=== PATIENT | male | born 1995 | race Caucasian/White ===

== ENCOUNTER 2017-05-20 20:56 | Observation (INO) | payer OTHER ==
[~2017-05-20] VITALS: Ht 182.9 cm; Wt 121.8 kg
[2017-05-20 21:10] VITALS: BP 139/86; PULSE 102; RESP 16; TEMP 100.4; O2SAT 100
[2017-05-20] MEDS ORDERED: SODIUM CHLOR 0.9% 1000 ML INJ 1,000 ML IV ONE ×3 (21:34)
[2017-05-20] MEDS ORDERED: VANCOMYCIN INJ 1,000 MG in SODIUM CHLOR 0.9% 250 ML INJ 250 ML IV STA (21:34)
[2017-05-20] MEDS ORDERED: PIPERACIL-TAZO 4.5 GM PREMIX 100 ML IV STA (21:34)
[2017-05-20] MEDS ORDERED: SODIUM CHLOR 0.9% 1000 ML INJ 600 ML IV ONE (21:34)
[2017-05-20] MEDS ORDERED: HYDROmorphone HCL PF 1 MG/ML VIAL IV ONE (21:45)
[2017-05-20] MEDS ORDERED: ONDANSETRON HCL 4 MG/2 ML VIAL IV ONE (21:45)
--- NOTE | 2017-05-20 22:13 | PD ---
HPI . Purulent drainage Chief Complaint: Bleeding Time Seen by Provider: 21:33 Travel History International Travel<30 days: No Contact w/Intl Traveler<30days: No History of Present Illness HPI This patient presents with the chief complaint of bleeding and purulent drainage from previous surgical wound. It sounds like this patient had removal of a pilonidal cyst abscess in late March. This was done in [place]. Sutures were removed on May 02. The patient reports that the wound has opened up some and has continued to drain since before the sutures were removed. He states that the surgeon told him that it would be okay. He has not followed up with the surgeon since then. He has since relocated to here to be near his mother. The patient reports the onset of fevers and chills last night. The patient indicates that the bleeding and drainage has been pretty consistent since the sutures were removed but that there is no acute change in the bleeding and drainage. History is a little bit difficult because the mother keeps interjecting. PFSH Past Medical History ADHD: Yes Anxiety: Yes Tetanus Vaccination: < 5 Years Influenza Vaccination: No Past Surgical History Other Surgery: Yes (PILONIDAL CYST REMOVED: APRIL 22, 2017) Social History Alcohol Use: Yes ("I DON'T DRINK OFTEN") Tobacco Use: No Substance Use: No Allergies-Medications (Allergen,Severity, Reaction): Coded Allergies: No Known Allergies (Unverified , 05/20/17) Reported Meds & Prescriptions Reported Meds & Active Scripts Active No Active Prescriptions or Reported Medications Review of Systems Except as stated in HPI: all other systems reviewed are Neg General / Constitutional: Positive: Fever, Chills Skin: Positive Lesions (with bleeding and purulent drainage) Physical Exam Narrative GENERAL: Awake and alert and in no acute distress. SKIN: Warm and dry. He has an open wound in the gluteal cleft with purulent drainage. The surrounding skin has an erythematous rash with irregular border. HEAD: Atraumatic. Normocephalic. EYES: Pupils equal and round. NECK: Trachea midline. CARDIOVASCULAR: Regular rate and rhythm. RESPIRATORY: No accessory muscle use. MUSCULOSKELETAL: No obvious deformities. No edema. NEUROLOGICAL: Awake and alert. No obvious cranial nerve deficits. Motor grossly within normal limits. Normal speech. PSYCHIATRIC: Appropriate mood and affect; insight and judgment normal. Data Data Last Documented VS Vital Signs Date Time Temp Pulse Resp B/P Pulse Ox O2 Delivery O2 Flow Rate FiO2 05/20/17 23:07 99.9 94 16 117/57 97 Room Air Orders Basic Metabolic Panel (Bmp) (05/20/17 21:34) Complete Blood Count With Diff (05/20/17 21:34) Blood Culture (05/20/17 21:34) Wound Culture And Gram Stain (05/20/17 21:34) Iv Access Insert/Monitor (05/20/17 21:34) Lactic Acid Sepsis Protocol (05/20/17 21:34) Hydromorphone Pf Inj (Dilaudid Pf Inj) (05/20/17 21:45) Ondansetron Inj (Zofran Inj) (05/20/17 21:45) Piperacil-Tazo 4.5 Gm Premix (Zosyn 4.5 (05/20/17 21:34) Vancomycin Inj (Vancomycin Inj) (05/20/17 21:34) Sodium Chlor 0.9% 1000 Ml Inj (Ns 1000 M (05/20/17 21:34) Sodium Chlor 0.9% 1000 Ml Inj (Ns 1000 M (05/20/17 21:34) Sodium Chlor 0.9% 1000 Ml Inj (Ns 1000 M (05/20/17 21:34) Sodium Chlor 0.9% 1000 Ml Inj (Ns 1000 M (05/20/17 21:34) Place In Observation (05/20/17 ) Vital Signs (Adult) Q4H (05/20/17 23:37) Activity Oob With Assistance (05/20/17 23:37) Coal Yard Supervisor / Telemetry .CONTINUOUS (05/20/17 23:37) Diet Heart Healthy (05/21/17 Breakfast) Sodium Chloride 0.9% Flush (Ns Flush) (05/20/17 23:45) Sodium Chloride 0.9% Flush (Ns Flush) (05/21/17 09:00) Case Management Consult (05/20/17 23:37) Naloxone Inj (Narcan Inj) (05/20/17 23:45) Admit Order (Ed Use Only) (05/20/17 23:37) Labs Laboratory Tests Test 05/20/17 21:55 White Blood Count 10.8 TH/MM3 Red Blood Count 4.47 MIL/MM3 Hemoglobin 13.8 GM/DL Hematocrit 40.3 % Mean Corpuscular Volume 90.2 FL Mean Corpuscular Hemoglobin 30.9 PG Mean Corpuscular Hemoglobin 34.2 % Concent Red Cell Distribution Width 12.0 % Platelet Count 179 TH/MM3 Mean Platelet Volume 7.5 FL Neutrophils (%) (Auto) 83.2 % Lymphocytes (%) (Auto) 7.9 % Monocytes (%) (Auto) 7.5 % Eosinophils (%) (Auto) 1.3 % Basophils (%) (Auto) 0.1 % Neutrophils # (Auto) 9.0 TH/MM3 Lymphocytes # (Auto) 0.9 TH/MM3 Monocytes # (Auto) 0.8 TH/MM3 Eosinophils # (Auto) 0.1 TH/MM3 Basophils # (Auto) 0.0 TH/MM3 CBC Comment DIFF FINAL Differential Comment Sodium Level 138 MEQ/L Potassium Level 3.6 MEQ/L Chloride Level 102 MEQ/L Carbon Dioxide Level 29.1 MEQ/L Anion Gap 7 MEQ/L Blood Urea Nitrogen 15 MG/DL Creatinine 1.20 MG/DL Estimat Glomerular Filtration 77 ML/MIN Rate Random Glucose 101 MG/DL Lactic Acid Level 1.0 mmol/L Calcium Level 9.1 MG/DL MDM Medical Decision Making Medical Screen Exam Complete: Yes Emergency Medical Condition: Yes Differential Diagnosis My differential diagnosis includes but is not limited to localized wound infection, cellulitis, abscess Narrative Course This patient presents with subjective fever and chills associated with purulent drainage from a previous surgical wound in the pilonidal area. Septic workup has been initiated. Zosyn has been ordered. CBC & BMP Diagram 05/20/17 21:55 Lactic acid level is normal. This patient needs to be admitted to observation for IV antibiotics and local wound care. Physician Communication Physician Communication Dr. Jordan will admit Diagnosis Primary Impression: Wound infection after surgery Qualified Code: T81.4XXA - Wound infection after surgery, initial encounter Admitting Information Admitting Physician Requests: Observation Scripts No Active Prescriptions or Reported Meds Condition: Stable Dafne Pena MD May 20, 2017 22:13
[2017-05-20 22:15] VITALS: BP 137/68; PULSE 101; O2SAT 96
[2017-05-20 22:19] LABS: POTASSIUM 3.6 MEQ/L (3.5-5.1)
[2017-05-20 22:22] LABS: BICARBONATE 29.1 MEQ/L (21.0-32.0)
[2017-05-20 22:26] LABS: BASOPHIL % 0.1 % (0.0-2.0); EOSINOPHIL # 0.1 TH/MM3 (0-0.4); EOSINOPHIL % 1.3 % (0.0-4.0); HEMATOCRIT 40.3 % (39.0-51.0); HEMO FLAGS DIFF FINAL; LYMPH % 7.9 % (9.0-44.0); LYMPHOCYTE # 0.9 TH/MM3 (1.0-4.8); MEAN CELL VOLUME 90.2 FL (80.0-100.0); MEAN CORPUSCULAR HEMOGLOBIN 30.9 PG (27.0-34.0); MEAN CORPUSCULAR HGB CONC 34.2 % (32.0-36.0); MONO % 7.5 % (0.0-8.0); NEUT % 83.2 % (16.0-70.0); PLATELET COUNT 179 TH/MM3 (150-450); RED BLOOD COUNT 4.47 MIL/MM3 (4.50-5.90); WHITE BLOOD COUNT 10.8 TH/MM3 (4.0-11.0)
[2017-05-20 23:07] VITALS: BP 117/57; PULSE 94; RESP 16; TEMP 99.9; O2SAT 97
[2017-05-20] MEDS ORDERED: SODIUM CHLORIDE 0.9% FLUSH 10 ML FLUSH IV FLUSH PRN (23:45)
[2017-05-20] MEDS ORDERED: Vancomycin Consult Pharmacy 1 EA OTHER SCH (23:45)
[2017-05-20] MEDS ORDERED: NALOXONE HCL 0.4 MG/ML AMP IV PRN (23:45)
[2017-05-21] MEDS: CIPROFLOXACIN 400 MG PREMIX 200 ML IV SCH ×3 (00:25→23:22)
[2017-05-21 02:08] VITALS: BP 142/79; PULSE 95; RESP 18; TEMP 100.1; O2SAT 95
[2017-05-21 02:09] VITALS: BP 142/79; PULSE 95; RESP 18; TEMP 100.1; O2SAT 95
[2017-05-21] MEDS: PIPERACIL-TAZO 4.5 GM PREMIX 100 ML IV SCH ×4 (05:00→22:14)
[2017-05-21 08:00] VITALS: BP 137/64; PULSE 97; RESP 16; TEMP 99.7; O2SAT 98
[2017-05-21] MEDS: VANCOMYCIN INJ 1,500 MG in SODIUM CHLORID 0.9% 500 ML INJ 500 ML IV SCH ×2 (09:50→18:00)
[2017-05-21] MEDS: SODIUM CHLORIDE 0.9% FLUSH 10 ML FLUSH IV FLUSH SCH ×2 (09:50→22:14)
[2017-05-21 12:17] LABS: AUTOMATED NEUTROPHIL # 7.9 TH/MM3 (1.8-7.7); BASOPHIL % 0.4 % (0.0-2.0); EOSINOPHIL # 0.1 TH/MM3 (0-0.4); EOSINOPHIL % 1.1 % (0.0-4.0); HEMATOCRIT 37.2 % (39.0-51.0); HEMO FLAGS DIFF FINAL; LYMPH % 10.2 % (9.0-44.0); MEAN CELL VOLUME 91.7 FL (80.0-100.0); MEAN CORPUSCULAR HEMOGLOBIN 31.5 PG (27.0-34.0); MEAN CORPUSCULAR HGB CONC 34.4 % (32.0-36.0); MONO % 8.1 % (0.0-8.0); NEUT % 80.2 % (16.0-70.0); PLATELET COUNT 162 TH/MM3 (150-450); RED BLOOD COUNT 4.05 MIL/MM3 (4.50-5.90); RED CELL DISTRIBUTION WIDTH 12.1 % (11.6-17.2); WHITE BLOOD COUNT 9.8 TH/MM3 (4.0-11.0)
[2017-05-21] MEDS ORDERED: DIATRIZOATE MEGLUM/DIATRIZOATE SOD 9 ML CUP PO ONE (13:00)
[2017-05-21] MEDS ORDERED: IOHEXOL 350 MG/ML 10 ML VIAL (for RAD DIAG) IV ONE (15:23)
[2017-05-21 16:00] VITALS: BP 104/56; PULSE 84; RESP 18; TEMP 99.6; O2SAT 97
--- NOTE | 2017-05-21 16:40 | RADRPT ---
EXAM DATE/TIME: 05/21/2017 14:59 [facility] COMPARISON: No previous studies available for comparison. INDICATIONS : Infected pilonidal cyst, recent surgery 04/22/17. Wound drainage since sutures removed 05/02/17. Feve r x 2 days. Evaluate for abscess. IV CONTRAST: 100 cc Omnipaque 350 (iohexol) IV ORAL CONTRAST: Prescribed oral contrast ingested. RADIATION DOSE: 21.54 CTDIvol (mGy) MEDICAL HISTORY : None SURGICAL HISTORY : Surgery on pilonidal cyst. ENCOUNTER: Initial ACUITY: 3 weeks PAIN SCALE: 5/10 LOCATION: pelvis TECHNIQUE: Volumetric scanning of the pelvis was performed. Using automated exposure control and adjustment of t he mA and/or kV according to patient size, radiation dose was kept as low as reasonably achievable to obtain optimal diagnostic quality images. DICOM format image data is available electronically for review and comparison. FINDINGS: BOWEL/MESENTERY: The visualized small and large bowel demonstrate no acute abnormality. There is no free fluid. BLADDER: There is no wall thickening or mass. RETROPERITONEUM: There is no aneurysm or lymphadenopathy. REPRODUCTIVE: Within normal limits. INGUINAL: There is no lymphadenopathy or hernia. MUSCULOSKELETAL: Within normal limits for patient age. SOFT TISSUES: There is an elongated fluid/air collection extending from the left medial buttock inferiorly to the l evel of the coccyx with surrounding inflammatory changes in the subcutaneous fat. This measures appro ximately 10 cm in length and 2.2 cm transverse x 1.9 cm AP dimension. 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 CONCLUSION: An elongated fluid/air collection extending from the left medial buttock inferiorly to the level of t he coccyx with surrounding inflammatory changes in the subcutaneous fat. This measures approximately 10 cm in length and 2.2 cm transverse x 1.9 cm AP dimension. 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 Bautista Mascorro MD on May 21, 2017 at 16:32 Board Certified Radiologist. This report was verified electronically.
[2017-05-21] MEDS ORDERED: LIDOCAINE HCL 1% 50 ML VIAL ONE (17:15)
--- NOTE | 2017-05-21 17:28 | HHI.HP ---
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 He presents with a 2 to three-day history of fevers, Rigors. He denies any chest pain or shortness of breath. Patient reports that pus has continued to drain from area of pilonidal cyst surgery for the past 2 weeks. He says he tries to sit on it longer to numb the pain, however the pain returns when he stops sitting. He reports the pain is sharp and constant.. Review of Systems performed and negative except for HPI and past medical history. Past Family Social History Past Medical History Patient denies any past history Past Surgical History Pilonidal cyst removal 04/22/17 Reported Medications patient denies any medications. Allergies: Coded Allergies: No Known Allergies (Unverified , 05/20/17) Family History Family history reviewed with patient and found to be currently noncontributory Social History Nonsmoker. Drinks rarely. Denies illicit drugs. Physical Exam Vital Signs Vital Signs Date Time Temp Pulse Resp B/P Pulse Ox O2 Delivery O2 Flow Rate FiO2 05/21/17 08:00 99.7 97 16 137/64 98 05/21/17 02:09 100.1 95 18 142/79 95 05/21/17 02:08 100.1 95 18 142/79 95 05/20/17 23:07 99.9 94 16 117/57 97 Room Air 05/20/17 22:15 101 137/68 96 Room Air 05/20/17 21:10 100.4 102 16 139/86 100 Physical Exam GENERAL: This is a well-nourished, well-developed patient, in no apparent distress.alert and oriented 3. SKIN: gluteal crease. Pilonidal cyst surgical scar mostly healed, however with distal 3 cm open and draining serous fluid. Minimal surrounding erythema. HEAD: Atraumatic. Normocephalic. No temporal or scalp tenderness. EYES: Pupils equal round and reactive. Extraocular motions intact. No scleral icterus. No injection or drainage. ENT: Nose without bleeding, purulent drainage or septal hematoma. Throat without erythema, tonsillar hypertrophy or exudate. Uvula midline. Airway patent. NECK: Trachea midline. No JVD or lymphadenopathy. Supple, nontender, no meningeal signs. CARDIOVASCULAR: Regular rate and rhythm without murmurs, gallops, or rubs. RESPIRATORY: Clear to auscultation. Breath sounds equal bilaterally. No wheezes , rales, or rhonchi. GASTROINTESTINAL: Abdomen soft, non-tender, nondistended. No hepato-splenomegaly , or palpable masses. No guarding. MUSCULOSKELETAL: Extremities without clubbing, cyanosis, or edema. No joint tenderness, effusion, or edema noted. No calf tenderness. Negative Homans sign bilaterally. NEUROLOGICAL: Awake and alert. Cranial nerves II through XII intact. Motor and sensory grossly within normal limits. Five out of 5 muscle strength in all muscle groups. Normal speech. Laboratory Laboratory Tests Test 05/20/17 05/21/17 21:55 08:17 White Blood Count 10.8 9.8 Red Blood Count 4.47 4.05 Hemoglobin 13.8 12.8 Hematocrit 40.3 37.2 Mean Corpuscular Volume 90.2 91.7 Mean Corpuscular Hemoglobin 30.9 31.5 Mean Corpuscular Hemoglobin 34.2 34.4 Concent Red Cell Distribution Width 12.0 12.1 Platelet Count 179 162 Mean Platelet Volume 7.5 7.9 Neutrophils (%) (Auto) 83.2 80.2 Lymphocytes (%) (Auto) 7.9 10.2 Monocytes (%) (Auto) 7.5 8.1 Eosinophils (%) (Auto) 1.3 1.1 Basophils (%) (Auto) 0.1 0.4 Neutrophils # (Auto) 9.0 7.9 Lymphocytes # (Auto) 0.9 1.0 Monocytes # (Auto) 0.8 0.8 Eosinophils # (Auto) 0.1 0.1 Basophils # (Auto) 0.0 0.0 CBC Comment DIFF FINAL DIFF FINAL Differential Comment Sodium Level 138 Potassium Level 3.6 Chloride Level 102 Carbon Dioxide Level 29.1 Anion Gap 7 Blood Urea Nitrogen 15 Creatinine 1.20 1.10 Estimat Glomerular Filtration 77 85 Rate Random Glucose 101 Lactic Acid Level 1.0 Calcium Level 9.1 Date/Time Procedure Status Source Growth 05/20/17 22:00 Gram Stain - Final Resulted Wound Skin 05/20/17 22:00 Wound Culture - Preliminary Resulted Wound Skin 05/20/17 22:00 Aerobic Blood Culture - Preliminary Resulted Blood Peripheral NO GROWTH IN 1 DAY 05/20/17 22:00 Anaerobic Blood Culture - Preliminary Resulted Blood Peripheral NO GROWTH IN 1 DAY 05/20/17 21:34 Aerobic Blood Culture Received Blood Peripheral Pending 05/20/17 21:34 Anaerobic Blood Culture Received Blood Peripheral Pending Result Diagram: 05/21/17 0817 05/21/17 0817 Imaging Last Impressions Pelvis CT 05/21/17 0000 Signed Impressions: Service Date/Time: Sunday, May 21, 2017 14:59 - CONCLUSION: An elongated fluid/air collection extending from the left medial buttock inferiorly to the level of the coccyx with surrounding inflammatory changes in the subcutaneous fat. This measures approximately 10 cm in length and 2.2 cm transverse x 1.9 cm AP dimension. 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 Bautista Mascorro MD Assessment and Plan Assessment and Plan //Sepsis. Acute. Fever 100.4, tachycardia 102 on admission. Source of infection is pilonidal abscess. -Blood and wound cultures pending. -Lactate 1.0 on admission. -Continue broad-spectrum antibiotics //Postoperative Pilonidal cyst infection -Concern for possible osteomyelitis Continue vancomycin and Zosyn Consult infectious disease. Consult colorectal surgery. Discussed with colorectal surgeon organizational development manager. -patient reports pain, however this appears to be under control. We'll try to avoid narcotics if possible. -Have ordered CT pelvis. //prophylaxis. scds Code Status full code Discussed Condition With patient, nurse, surgeon Physician Certification 2 Midnight Certification Type: Admission for Inpatient Services Order for Inpatient Services The services are ordered in accordance with Medicare regulations or non- Medicare payer requirements, as applicable. In the case of services not specified as inpatient-only, they are appropriately provided as inpatient services in accordance with the 2-midnight benchmark. Estimated LOS (days): 2 days is the estimated time the patient will need to remain in the hospital, assuming treatment plan goals are met and no additional complications. Post-Hospital Plan: Not yet determined Darien Martinez MD May 21, 2017 17:28
[2017-05-21] MEDS: oxyCODONE/ACETAMINOPHEN 5 MG/325 MG TAB PO PRN (17:58)
[2017-05-21 20:00] VITALS: BP 144/90; PULSE 66; RESP 18; TEMP 98.5; O2SAT 97
[2017-05-22] VITALS: BP 108/66; PULSE 54; RESP 16; TEMP 97.2; O2SAT 99
[2017-05-22] MEDS: VANCOMYCIN INJ 1,500 MG in SODIUM CHLORID 0.9% 500 ML INJ 500 ML IV SCH ×2 (01:41→08:36)
[2017-05-22] MEDS: PIPERACIL-TAZO 4.5 GM PREMIX 100 ML IV SCH (04:00)
[2017-05-22 06:19] LABS: BASOPHIL % 0.6 % (0.0-2.0); EOSINOPHIL # 0.3 TH/MM3 (0-0.4); EOSINOPHIL % 6.5 % (0.0-4.0); HEMATOCRIT 37.7 % (39.0-51.0); HEMO FLAGS DIFF FINAL; LYMPH % 19.3 % (9.0-44.0); LYMPHOCYTE # 0.9 TH/MM3 (1.0-4.8); MEAN CORPUSCULAR HEMOGLOBIN 31.8 PG (27.0-34.0); MEAN CORPUSCULAR HGB CONC 34.5 % (32.0-36.0); MONO % 11.2 % (0.0-8.0); NEUT % 62.4 % (16.0-70.0); PLATELET COUNT 158 TH/MM3 (150-450); RED BLOOD COUNT 4.09 MIL/MM3 (4.50-5.90); RED CELL DISTRIBUTION WIDTH 11.9 % (11.6-17.2); WHITE BLOOD COUNT 4.7 TH/MM3 (4.0-11.0)
[2017-05-22 06:37] LABS: MAGNESIUM 2.1 MG/DL (1.5-2.5)
--- NOTE | 2017-05-22 07:16 | HHI.PR ---
Subjective Remarks C/R Surg afebrile, VSS Rebeka PO voiding Objective - Vital Signs Date Time Temp Pulse Resp B/P Pulse Ox O2 Delivery O2 Flow Rate FiO2 05/22/17 00:00 97.2 54 16 108/66 99 05/20/17 23:07 Room Air Result Diagram: 05/22/17 0555 05/22/17554 Objective Remarks PE alert Rectal - wound open, clean, less red A/P Assessment and Plan Imp: better - wound clean base less red cont wet/dry dressing with irrigations - shower can see pt when he returns to [facility] in May Dru Mcintosh MD May 22, 2017 07:16
[2017-05-22] MEDS: oxyCODONE/ACETAMINOPHEN 5 MG/325 MG TAB PO PRN (08:35)
--- NOTE | 2017-05-22 08:35 | MB ---
cc: SARA PINA M.D. DATE OF CONSULTATION May 22, 2017 REASON FOR CONSULTATION Infected pilonidal surgical site. HISTORY OF PRESENT ILLNESS Mr. Peacock is a very pleasant 21-year-old male who had excision of a pilonidal disease up in [place] about a month ago. The patient said he was doing well and had the stitches removed after primary closure. The area has become more tender and swollen with redness and cellulitis. He has continued to drain seropurulent fluid since the sutures had been removed. He came to [place] during his summer vacation and noted onset of low-grade fevers and some chills. Discharge from the pilonidal site has increased and he has had increasing pain. He continues to move his bowels well. No rectal bleeding. No diarrhea. No nausea or vomiting. The patient was seen in the emergency room and admitted for additional evaluation. PAST MEDICAL HISTORY, PAST SURGICAL HISTORY Please see admitting history and physical for more complete past medical and surgical history. PERTINENT PHYSICAL GENERAL: A very pleasant, heavy-set, muscular male in no acute distress. ABDOMEN: Very soft and benign. No distension or tenderness. ANAL INSPECTION: A pilonidal incision which was opened for about 3 cm in the caudal extent with cellulitis and tenderness. Finger passed up through the subcutaneous tunnel, up toward the cephalad portion of the incision with more purulent fluid. After obtaining permission, the area was anesthetized and opened along the length of the incision, irrigating and cleaning the cavity, packing it with gauze dressing. IMPRESSION Infected postop pilonidal surgical site. The site looked a lot engine cleaner and the base is healthy appearing after irrigation and local debridement. PLAN We will do vigorous wet-to-dry dressings with some hydrogen peroxide irrigation for the first several days and shower rinse. The patient will probably be able to continue outpatient treatment and return home as planned in the morning if he tolerates dressing changes. Discussed length with his mother and they will follow up with the doctor in [place] who did the surgery. Also, suggested possibility of a wound VAC if the wound is draining a moderate amount and it is hard to pack or get proper dressing changes at home. If the patient returns to the [facility], I would be happy to see him in followup if the wound does not heal completely. MD ARNULFO Benoit/JULIAN 8:06 AM 8:24 AM
[2017-05-22] MEDS ORDERED: PHARMACY ORDERED LAB ONE (08:45)
[2017-05-22] MEDS: SODIUM CHLORIDE 0.9% FLUSH 10 ML FLUSH IV FLUSH SCH (09:00)
== END 2017-05-22 10:00 | disposition home or self-care (01) ==
LOC: PHED 20:56 → PHEDA 23:39 → PH3A 05-21 01:48
PROVIDERS: ADMIT Hospitalist; ATTEND Hospitalist
DX: T81.4XXA Infection following a procedure, initial encounter (principal); B96.89 Other specified bacterial agents as the cause of diseases classified elsewhere; F90.9 Attention-deficit hyperactivity disorder, unspecified type; F41.9 Anxiety disorder, unspecified
CPT/HCPCS: 72193; 76937; 80048; 80069; 80202; 82565; 83605; 83735; 85025; 87040; 87070; 87205; 96365; 96367; 96375; 99285; G0378; J0744; J1170; J2405; J2543; J3370; J7030; J7040; J7050; Q9963; Q9967